=== PATIENT | male | born 1990 | race Caucasian/White ===

== ENCOUNTER 2016-08-30 08:56 | Emergency (ER) | payer MEDICAID ==
[~2016-08-30] VITALS: Ht 170.2 cm; Wt 91.0 kg
[2016-08-30] MEDS ORDERED: ACET-2178 PO (09:29)
[2016-08-30] MEDS ORDERED: CIPR-213 PO (09:29)
[2016-08-30] MEDS ORDERED: SODIUM CHLORIDE 0.9% 1,000 ML IV ONE (10:48)
[2016-08-30] MEDS ORDERED: KETOROLAC 30MG/ML VIAL IV ONE (11:00)
[2016-08-30 11:27] LABS: BASOPHILS % 0.3 % (0.0-2.0); EOSINOPHILS % 0.6 % (0.0-5.0); HEMATOCRIT. 45.3 % (42.0-52.0); HEMOGLOBIN. 15.8 g/dL (14.0-18.0); LYMPHOCYTES % 21.7 % (20.0-50.0); MEAN CORPUSCULAR HEMOGLOBIN 31.3 pg (28.0-32.0); MEAN CORPUSCULAR VOLUME 89.7 fL (80.0-94.0); MEAN PLATELET VOLUME 7.7 fl (7.4-10.4); MONOCYTES % 10.6 % (2.0-8.0); NEUTROPHILS % 66.8 % (40.0-76.0); PLATELET 195 x1000/uL (130-400); RED BLOOD CELL COUNT 5.06 mill/uL (4.7-6.1)
[2016-08-30 11:34] LABS: CHLORIDE 100 mEq/L (98-107); PROTHROMBIN TIME 10.4 sec
[2016-08-30 11:39] LABS: CARBON DIOXIDE 30 mEq/L (21-32)
[2016-08-30] MEDS ORDERED: SODIUM CHLORIDE 0.9% 10ML VIAL ONE (12:42)
[2016-08-30] MEDS ORDERED: IOHEXOL-300 100 ML BOTTLE ONE (12:42)
[2016-08-30 12:53] LABS: CLARITY URINE CLEAR (CLEAR); COLOR URINE YELLOW (YELLOW); GLUCOSE URINE NEGATIVE (NEGATIVE); KETONES URINE 1+ (NEGATIVE); LEUKOCYTE ESTERASE URINE NEGATIVE (NEGATIVE); NITRITE URINE NEGATIVE (NEGATIVE); OCCULT BLOOD URINE 2+ (NEGATIVE); PROTEIN URINE NEGATIVE (NEGATIVE); SPECIFIC GRAVITY URINE 1.015 (1.005-1.030); UROBILINOGEN URINE 0.2 E.U./dL (0.2-1.0)
[2016-08-30 13:30] VITALS: BP 111/69
== END 2016-08-30 19:11 | disposition home or self-care (01) ==
LOC: ER 10:34
DX: R10.31 Right lower quadrant pain (principal); R19.7 Diarrhea, unspecified; R11.0 Nausea; Z87.891 Personal history of nicotine dependence; Z88.1 Allergy status to other antibiotic agents
CPT/HCPCS: 36415; 74177; 76857; 80053; 81001; 83690; 85025; 85610; 96361; 96374; 99285; A4216; J1885; J7030; J7050; Q9967; Z7610